=== PATIENT | male | born 2000 | race Caucasian/White ===

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

== ENCOUNTER 2020-04-15 15:00 | Outpatient (RCR) | payer OTHER, SELFPAY ==
[2019-12-09 14:03] VITALS: BMI 31.9
--- NOTE | 2020-03-02 16:27 | HP.PTEVAL_ITS ---
Patient's Visit Information CARLOS PRESTON is a 19 year old M referred to Physical Therapy by Dr. Wilton Parnell DPM with a diagnosis of LBP with Sciatica. Date of Evaluation: 03/02/20 Physical Therapist: Adalid Chase, PT, ATC - Visit Plan Frequency: 1x/Week Duration: 2 Weeks Plan: Issue and instruct on a HEP of REIL and core strenghtening next visit - Subjective Pt reports he has had LBP since September of this year. Pt reports the pain is intermittent in nature. Pt reports this episode started 3 weeks ago. 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 Pt reports no PMHx of LBP prior to September. Pt notes R LE radiculopathy that extends from his LB to his R knee. no sleep difficulty secondary to pain. Pt notes bending forward causes his pain. IBuprophen helps to alleviate his pain. 0/10 pain at rest, 6/10 pain at worst (when he stands for a long time at work) - Pain LBP Pain Intensity (Out of 10): 0 Pain Intensity Range: 6 - Objective Neuro: B LE sensation is WNL to light touch. B patellar reflex= 1/3. MMT: B LE 's 5/5 throughout. L/S ROM: Pt is minimally limited with flex, and severely limited with extension. Both result in increased pain. WNL for B SB. Repeated movements: RFIS increases pain significantly after 10 reps. MCKAY increasees pain but goes away immediately afterwards. REIL 10x3. Special tests: neg piriformis test - Goals Goal 1:: I with HEP Goal Time Frame: 2 Weeks - Rehabilitation Potential Physical Therapy Diagnosis: Pt has LBP, R LE radiculopathy, and limited L/S ROM secondary to a L/S disc derrangement Rehabilitation Potential: Good - Anticipated Interventions Patient/Client Instruction: Educate patient on: Condition, Plan of Care For the Purpose of:: To improve self management Therapeutic Exercise to Include: Strength training, Body mechanics, Postural training, Dynamic Lumbar Stabilization, Cuco Exercises For the Purpose of:: To decrease pain, To increase ROM, To improve muscle performance and motor function Thank you for the opportunity to evaluate your patient. For Medicare and Medicare HMO plans, please review the plan of care and approve it. It will need to be FAXED BACK to us at [phone] for Medicare purposes. For Medicare only, by signing this I certify the plan of care. Please let me know if there are questions or concerns regarding this plan of care. Physician Signature:____ Date:
--- NOTE | 2020-04-15 15:19 | HP.PTDCSUM ---
It has been my pleasure to treat CARLOS PRESTON referred by Dr. Wilton Parnell, DPM, with the diagnosis of LBP with Sciatica for a total of 9 visit(s). Discharge Date: Please see the following information for a summary of their discharge status. Subjective: My pain better some days, then the same on the other days LBP Pain Intensity (Out of 10): 3 % Improvement: 35 Objective/Function: LBP is 2-3/10 currently. Pt has full lumbar ROM with exception to flexion which is minimally limited. Pt is I with HEP Goal 1:: I with HEP Goal Progress: Goal Met Plan: Discharge If there are questions or concerns regarding this patient's physical therapy, please feel free to call me at [phone]. Thank you for the referral of this patient. Sincerely, Adalid Chase, PT, ATC
== END 2020-04-15 19:00 | disposition home or self-care (01) ==
LOC: PT 15:00
PROVIDERS: PCP Pediatrics; Referring Provider Podiatrist Foot & Ankle Surgery; Visit Provider Podiatrist Foot & Ankle Surgery
DX: M67.01 Short Achilles tendon (acquired), right ankle (principal); M54.5 Low back pain
CPT/HCPCS: 97110; 97161; 97164

== ENCOUNTER → 2020-07-08 10:15 | Outpatient (CLI) | payer OTHER, SELFPAY ==
[2019-12-09 14:03] VITALS: BMI 31.9
--- NOTE | 2020-07-08 10:25 | MRI_ITS ---
STUDY: MRI LUMBAR SPINE WITHOUT CONTRAST REASON FOR EXAM: Male, 19 years old. low back pain, right leg pain TECHNIQUE: Standardized fat and water weighted pulse sequences were obtained in the sagittal and axial planes. COMPARISON: X-ray 12/09/2019 FINDINGS: T12-L1: Normal endplates. Normal disc height, hydration and morphology. Normal bilateral facet joints. Normal central canal and bilateral lateral recesses. Normal bilateral intervertebral neural foramina. Normal lumbar lordosis. There is no substantial scoliosis. Normal conus medullaris that terminates at the L1. L1-2: Disc desiccation but no disc protrusion, spinal stenosis, or neural foraminal stenosis. L2-3: Normal endplates. Normal disc height, hydration and morphology. Normal bilateral facet joints. Normal central canal and bilateral lateral recesses. Normal bilateral intervertebral neural foramina. L3-4: Normal endplates. Normal disc height, hydration and morphology. Normal bilateral facet joints. Normal central canal and bilateral lateral recesses. Normal bilateral intervertebral neural foramina. L4-5: Normal endplates. Normal disc height, hydration and morphology. Normal bilateral facet joints. Normal central canal and bilateral lateral recesses. Normal bilateral intervertebral neural foramina. L5-S1: Mild bilateral facet hypertrophy. 2 mm retrolisthesis of L5 on S1 with a moderate sized central disc protrusion produces moderate spinal stenosis with moderate bilateral lateral recess stenosis with abutment of the S1 nerve roots bilaterally and mild bilateral neural foraminal stenosis. Normal visualized sacral ala. Normal visualized paraspinous soft tissue structures. MRI/Spine Lumbar (Routine) IMPRESSION: Focal degenerative disc disease L5/S1 as described above. Electronically Signed: Bubba Montanez MD at 14:18 EDT Tel , Service support ,
== END ==
PROVIDERS: PCP Pediatrics; Referring Provider Orthopaedic Surgery; Visit Provider Orthopaedic Surgery
DX: M51.37 Other intervertebral disc degeneration, lumbosacral region (principal); M48.07 Spinal stenosis, lumbosacral region
CPT/HCPCS: 72148

== ENCOUNTER 2020-10-21 10:01 | Day surgery (SDC) | payer OTHER, SELFPAY ==
[2019-12-09 14:03] VITALS: BMI 31.9
[2020-10-21 10:18] VITALS: BP 144/72; PULSE 77; RESP 17; TEMP 36.9; O2SAT 99; BMI 32.6
--- NOTE | 2020-10-21 11:11 | DCINST_ITS ---
Discharge Diet: No Restrictions Discharge Activity: Return to Normal Activity Return to work on:: 10/21/20 May resume sexual activity in: No Restrictions Weight Bearing Status: Weight bearing as tolerated Call your doctor if your incision/area has: Continuous Slow Oozing, Sudden Increased Bleeding, Increased Pain/ Swelling, Increased Redness, Foul Smelling Discharge, Swelling at the incision site Call your doctor if you observe: Fever of 101 or Higher, Coldness, Increased Pain, Numbness or Tingling, Change in Color, Inability to urinate, Inability to have a bowel movement, Using more than one pad per hour, Shortness of breath, Dizziness, Fainting spells, Swelling in the ankles, Chest pain, Prolonged hiccoughing, Increased palpitations (irregular heartbeat), Calf discomfort, Uncontrolled pain Allergies/Adverse Reactions: Allergies No Known Allergies Allergy (Unverified 11/27/19 15:36) Medications to take at Discharge Albuterol Inhaler 1 puff INHALATION PRN PRN 10/21/20 Primary Care Physician: Linnea Parnell MD [Primary Care Provider] - Test Results: Test results from this visit will be discussed in further detail at your follow- up appointment, if applicable. Please Follow Up With: Derian Castillo DO - as scheduled
--- NOTE | 2020-10-21 11:25 | RAD_ITS ---
STUDY: X-RAY - LUMBAR SPINE REASON FOR EXAM: Male, 19 years old. BILAT L5-S1 TRANSFORAMINAL INJECTION TECHNIQUE: 1 view(s) of the lumbar spine were obtained. COMPARISON: None FINDINGS: Intraoperative imaging provided for bilateral L5-S1 transforaminal injection. RAD/Lumbar Spine 2 or 3 Views IMPRESSION: Intraoperative imaging provided for bilateral L5-S1 transforaminal injection. Electronically Signed: Hudson Nieves MD at 15:01 EST , Service support ,
[2020-10-21] MEDS: Lidocaine 1% (20 ml mdv) 20 ML Vial (11:30)
[2020-10-21] MEDS: Triamcinolone Acetonide 40 MG/ML Vial (11:30)
[2020-10-21] MEDS: Sodium Bicarbonate 50 MEQ/50 ML Vial (11:30)
[2020-10-21] MEDS: Bupivacaine 0.25% 30 ML Vial (11:30)
[2020-10-21 11:46] VITALS: BP 136/79; PULSE 57
[2020-10-21 11:52] VITALS: BP 136/79; PULSE 57; RESP 16; TEMP 37.1; O2SAT 99
--- NOTE | 2020-10-21 15:59 | OP.PCM_ITS ---
Problem List (1) Lumbar herniated disc Status: Acute Report of Operation Date of Procedure: 10/21/20 Pre-Operative Diagnosis: L5-S1 herniated disc Post-Operative Diagnosis: L5-S1 herniated disc Surgery/Procedure Performed:: Bilateral L5-S1 transforaminal epidural steroid injection Description of Surgical Findings:: The patient was seen preop in the holding area. Risk and benefits of the procedure were explained to the patient and informed consent was obtained. The patient was transported to the procedure room, positioned prone on the fluoroscopy table. The back was prepped and draped in the usual sterile fashion. Sterile technique was used throughout. Under fluoroscopic guidance in the AP view, vertebral bodies were identified. The following sequence of events was performed independently prior to needle insertion. Using cephalocaudad tilt, superior endplates were squared and ipsilateral obliquing was performed. The target point is lateral to the lamina and below the pedicle. At no time did the needle cross the line formed medially by the pedicles. Corresponding skin and subcutaneous tissue needle entry sites were anesthetized with a 27-gauge 1- 1/2 inch needle using 1% lidocaine, 5 mL per level. Subsequently, a 22-gauge 5 inch spinal needle with a curved tip was advanced via a subpedicular approach to enter the neuroforamen at bilateral L5-S1 respectively. Position was confirmed in AP, oblique, and lateral views. Subsequently an AP view, contrast was injected, positive epidural spread was noted. No intravascular or intrathecal uptake was noted. After negative aspiration, bupivacaine 0.25% 1 mL +1 mL of Kenalog 40 mg/mL for a total volume of 2 mL was injected in 1 mL aliquots to each level respectively. [place] were removed. No complications were noted. The patient was transported to recovery and monitored until discharge criteria were met. Type of Anesthesia:: Local Estimated Blood Loss (mL): None - Complications None
== END 2020-10-21 12:20 | disposition home or self-care (01) ==
LOC: SDC 10:01 → AC 10:02
PROVIDERS: PCP Pediatrics; Referring Provider Orthopaedic Surgery; Visit Provider Orthopaedic Surgery
PROC: 3E0S3BZ Introduction of Anesthetic Agent into Epidural Space, Percutaneous Approach (ICD-10-PCS; CPT 64483; principal; 2020-10-21 11:25)
DX: M51.16 Intervertebral disc disorders with radiculopathy, lumbar region (principal); M48.061 Spinal stenosis, lumbar region without neurogenic claudication
CPT/HCPCS: 64483; 72100

== ENCOUNTER → 2021-01-10 12:28 | Outpatient (CLI) | payer OTHER, SELFPAY ==
--- NOTE | 2021-01-10 12:30 | EKG12_ITS ---
Test Reason : PREOP Blood Pressure : / mmHG Vent. Rate : 077 BPM Atrial Rate : 077 BPM P-R Int : 134 ms QRS Dur : 096 ms QT Int : 362 ms P-R-T Axes : 052 043 018 degrees QTc Int : 409 ms Normal sinus rhythm Normal ECG Confirmed by MIAH RING, GLENIS ([id number]), newspaper managing editor GLEN VILLANUEVA ([id number]) on 01/11/2021 8:48:13 AM Referred By: Derian Castillo Confirmed By:TAB DOOLEY MD
--- NOTE | 2021-01-10 12:31 | RAD_ITS ---
STUDY: X-RAY CHEST REASON FOR EXAM: Male, 20 years old. PRE OP TECHNIQUE: PA and lateral views of the chest. COMPARISON: None. FINDINGS: The lungs are clear and expanded. There is no demonstrated pleural abnormality. Normal size heart. Normal mediastinum and asya. Normal visualized pulmonary arteries. Normal visualized aortic arch and descending thoracic aorta. Normal visualized thoracic spine. Normal visualized ribs, clavicles, and shoulders. There is no demonstrated abnormality of the visualized soft tissue structures of the upper abdomen. RAD/Chest PA and Lateral IMPRESSION: Normal x-ray examination of the chest. Electronically Signed: Hudson Nieves MD at 15:39 EDT , Service support ,
[2021-01-10 13:38] LABS: Absolute Lymphocyte Count 2.33 X10^3/uL (0.83-4.51); Absolute Neutrophil Count 3.9 X10^3/uL (2.0-7.7); Basophil# 0.05 X10^3/uL; Basophil% 0.7 % (0-1); Eosinophil# 0.18 X10^3/uL; Eosinophils% 2.5 % (0-5); Hematocrit 46.7 % (40-54); Lymphocyte # 2.33 X10^3/ul (0.83-4.51); Lymphocyte % 31.8 % (19-41); Mean Corp Hgb Conc 32.1 g/dL (32-36); Mean Corpuscular Hgb 28.5 pg (27.0-32.0); Mean Corpuscular Volume 88.6 fL (80-94); Monocyte# 0.88 X10^3/uL; NRBC Flagged by Analyzer 0 % (0-5); Neutrophil # 3.86 X10^3/uL (2.7-7.7); Neutrophil % 52.6 % (47-70); Platelet Count 247 K/mm3 (150-450); RBC Distribution Width SD 42.5 fl (35.1-43.9); Red Blood Count 5.27 M/mm3 (4.6-6.2); White Blood Count 7.3 K/mm3 (4.4-11.0)
[2021-01-10 13:46] LABS: International Normalized Ratio 1.1; Partial Thromboplast Time 21.6 Seconds (24.1-36.2); Prothrombin Time (Protime)PT. 13.4 SECONDS (11.7-14.9)
[2021-01-10 14:09] LABS: Anion Gap 2 (5-15); BUN 19 mg/dL (7-18); BUN/Creat Ratio 19.5 RATIO (10-20); Calcium,Total 8.8 mg/dL (8.5-10.1); Chloride 107 mmol/L (98-107); Creatinine, Serum 0.97 mg/dL (0.70-1.30); EST Glomerular Filtration Rate 104 mL/min (>60); Est Glom Filt Rate - Afr Amer 126 mL/min (>60); Glucose 89 mg/dL (74-106); Potassium 4.4 mmol/L (3.5-5.1); Sodium Level 140 mmol/L (136-145)
[2021-01-10 17:19] LABS: Probe Check PASS; Specimen Processing Control PASS
== END ==
PROVIDERS: PCP Pediatrics; Referring Provider Orthopaedic Surgery; Visit Provider Orthopaedic Surgery
DX: Z01.810 Encounter for preprocedural cardiovascular examination (principal); Z01.812 Encounter for preprocedural laboratory examination; Z20.822 Contact with and (suspected) exposure to COVID-19
CPT/HCPCS: 36415; 71046; 80048; 85025; 85610; 85730; 87635; 93005; C9803; U0002

== ENCOUNTER 2021-03-09 16:11 | Emergency (ER) | payer OTHER, SELFPAY ==
[2021-03-09 16:12] VITALS: BP 135/77; PULSE 98; RESP 15; TEMP 36.8; O2SAT 97; BMI 34.4
--- NOTE | 2021-03-09 16:28 | CT_ITS ---
STUDY: CT BRAIN WITHOUT CONTRAST REASON FOR EXAM: Male, 20 years old. Pain, headache RADIATION DOSAGE (If Supplied By Facility): CTDIvol = ( 44.99 ) mGy, DLP = ( 779.24 ) mGycm TECHNIQUE: Transaxial CT imaging of the brain was performed without administration of intravenous contrast material. Individualized dose optimization techniques were used for this CT. COMPARISON: No relevant priors. FINDINGS: Normal soft tissue structures. Normal calvarium. Normal size ventricles and extra-axial spaces for the patient''s age. Normal white matter tracts of the cerebral hemispheres. Normal basal ganglia and thalami. Normal brainstem. Normal cerebellum. There is no intracranial hemorrhage. There are no findings of an acute ischemic infarction. Normal visualized paranasal sinuses. CT/Brain/Head without Contrast IMPRESSION: Normal unenhanced CT scan of the brain. Electronically Signed: Bubba Montanez MD at 17:30 EDT Tel , Service support ,
--- NOTE | 2021-03-09 16:28 | EX.ED.VIS.HA ---
HPI History of Present Illness Chief Complaint: Headache Informant: patient Narrative Narrative: Patient presents with a headache. It started earlier today. He describes sharp pain in his occipital area that does not radiate. He denies any visual changes. He has had nausea and vomiting associated with this. He normally does not get headaches like this. He is try Tylenol and ibuprofen without any relief. No paresthesias or weakness of his arms or legs. No slurred speech. Denies any falls or trauma. PFSH PFS Medical History (Updated 03/09/21 @ 18:[address] Osvaldo Whalen MD) Asthma History of ankle sprain Home Medications Albuterol Inhaler 1 puff INHALATION PRN PRN 10/21/20 [History Last Taken Unknown] ketorolac 10 mg PO TID 5 Days #15 tab 03/09/21 [Rx Last Taken Unknown] Allergy/AdvReac Type Severity Reaction Status Date / Time No Known Allergies Allergy Unverified 11/27/19 15:36 Family History Other Asthma Social History Smoking Status: Never smoker alcohol intake: never substance use type: does not use what type of physical activity do you participate in: none ROS ROS ED Constitutional Constitutional ED: Denies chills or fever(s) Eyes Eyes: Denies blurry vision, change in vision or diplopia ENT ENT ED: Denies ear pain, rhinorrhea or sore throat Cardiovascular Cardiovascular: Denies chest pain or palpitations Respiratory/Chest Respiratory/Chest: Denies cough, dyspnea or sputum Gastrointestinal Gastrointestinal: Reports nausea and vomiting Genitourinary Genitourinary ED: Denies dysuria, hematuria or urinary frequency Musculoskeletal Musculoskeletal: Denies back pain or neck pain Integumentary Denies change in pigmentation or rash Neurologic Neurologic: Reports headache(s) Psychiatric Psychiatric: Denies anxiety or depression Endocrine Endocrinology: Denies polydipsia or polyuria EXAM Physical Exam Const Vital Signs: 03/09/21 16:12 Temperature 98.2 F Temperature Source Temporal Pulse Rate 98 Respiratory Rate 15 Blood Pressure 135/77 H Blood Pressure Mean 96 Pulse Ox 97 Oxygen Delivery Method Room Air Positive well nourished and well developed General Appearance ED: well developed and NAD HEENT Reports moist mucous membranes normocephalic and atraumatic; Negative for tenderness Eyes PERRL and EOMs intact bilaterally Neck supple and no JVD Chest Wall Chest: Negative for tenderness Resp normal respiratory effort and clear to auscultation bilaterally Effort and Inspection: Negative for respiratory distress Cardio regular rate, regular rhythm and no murmurs Rate: regular rate Rhythm: regular rhythm GI soft to palpation, non-tender and non-distended Palpation: soft Back/Spine no CVA tenderness and no thoracic nor lumbar tenderness Cervical Spine: Negative for cervical spine tenderness Extremity normal to inspection and full ROM General Extremety ED: Negative for tenderness Neuro oriented x3, CN's II-XII intact bilaterally and no sensory deficits noted Sensorium / Orientation: awake and alert Motor Exam: strength 5/5 throughout Psych mental status grossly normal Skin no rashes or lesions noted MDM MDM MDM Narrative Medical decision making narrative: I did perform a CAT scan because this is the first headache this patient has had of this severity. Is normal. He was given Reglan, Benadryl, Toradol and Decadron with improvement of his headache. I will send him home with Toradol to help with his headaches. He will follow-up with his PCP. Radiography Diagnostic Testing: Radiology Impression Brain CT 03/09/21 16:28 IMPRESSION: Normal unenhanced CT scan of the brain. Electronically Signed: Bubba Montanez MD at 17:30 EDT Tel , Service support , Discharge Plan Triage Chief Complaint: Headache ED Provider: Osvaldo Whalen Dx/Rx/DC Orders Clinical Impression: Headache Instructions: ED Headache Unspecified Prescriptions: New ketorolac 10 mg tablet 10 mg PO TID 5 Days Qty: 15 RF: 0 No Action Albuterol Inhaler 1 puff INHALATION PRN PRN (Reason: Shortness Of Breath) RF: 0 Primary Care Provider: Linnea Parnell Referrals: Linnea Parnell MD [Primary Care Provider] - Disposition Disposition: Home, self care
[2021-03-09] MEDS: DiphenhydrAMINE 50 MG/ML Syringe 25 MG IV (16:48)
[2021-03-09] MEDS: 0.9% Normal Saline 1,000 ML 999 ML IV (16:48)
[2021-03-09] MEDS: proCHLORPERazine 10 MG/2 ML Vial IV (16:48)
[2021-03-09] MEDS: Ketorolac 15 MG/ML Vial IV (17:53)
[2021-03-09] MEDS: dexAMETHasone 10 MG/ML Vial 4 MG IV (18:55)
[2021-03-09 19:00] VITALS: BP 143/71; PULSE 82; RESP 16; O2SAT 100
== END 2021-03-09 19:17 | disposition home or self-care (01) ==
PROVIDERS: Emergency Provider Emergency Medicine; PCP Pediatrics
DX: R51.9 Headache, unspecified (principal); R11.2 Nausea with vomiting, unspecified
CPT/HCPCS: 70450; 96361; 96374; 96375; 99283; J7030; A4216

== ENCOUNTER → 2021-06-10 | Outpatient (CLI) | payer OTHER, SELFPAY ==
[2021-06-10 12:57] LABS: RBC /Synovial Fluid 0.036 10^6/uL (0); Synovial Fld Mononuclear WBC % 8.5 %; Synovial Fld Polynuclear WBC # 25.319 10^3/uL; Synovial Fld Polynuclear WBC % 91.5 %
[2021-06-10 13:09] LABS: AUTO B FLUID DILUENT BKGD CT WBC <0.1 RBC <0.01 (W<.1,R<.01); Appearance /Synovial Fluid Cloudy (CLEAR); Color / Synovial Fluid Pink (Pale Yellow)
[2021-06-10 13:25] LABS: Lymph 4 %; Monocyte /Synovial Fluid 3 %; Neutrophil 93 % (0-25)
[2021-06-10 13:28] LABS: Body Fluid QC Type(s) BF1Q
[2021-06-13 12:33] LABS: Pathologist Comment Reviewed
== END | disposition home or self-care (01) ==
LOC: LABSPEC 15:19
PROVIDERS: PCP Pediatrics; Visit Provider Orthopaedic Surgery
DX: L76.34 Postprocedural seroma of skin and subcutaneous tissue following other procedure (principal)
CPT/HCPCS: 87015; 87070; 87075; 87077; 87101; 87116; 87205; 87206; 89050; 89051

== ENCOUNTER 2021-06-16 18:56 | Observation (INO) | payer OTHER, SELFPAY ==
[2021-06-16] VITALS (9 sets, daily range): BP systolic 111–147; BP diastolic 58–99; PULSE 69–91; RESP 16; TEMP 36.3–37; O2SAT 96–99; BMI 36.8
[2021-06-16] MEDS: Lactated Ringers 1,000 ML 100 ML IV ×2 (13:51→18:15)
--- NOTE | 2021-06-16 14:45 | TISS_PTH ---
PATIENT: CARLOS PRESTON LOC: [facility]3 U#:[id number] AGE/SX: 20/M ROOM: GA316 RE06/16/[address]: Dr. Derian Castillo DO : 2000 BED: 1 DIS: 06/17/2021 SPEC #: [id number] RECD: 06/16/21 19:04 STATUS: CK PACHECONara #: [id number] SUHA: 06/16/21 14:[address]: Derian Castillo DEPT: SURGICAL PATHOLOGY RECD BY: Zeinab Orona ENTERED: 06/17/21 07:34 SP TYPE: Tissue Bx AMANDA DR: Dr. Linnea Parnell MD Tissues: A - TISSUE SURGICALLY REMOVED B - TISSUE SURGICALLY REMOVED Procedures: Surgery Specimen Level III HEADER OPERATION: Exploration of lumbar wound, placement of wound vac PRE-OP DIAGNOSIS: Seroma TISSUE SUBMITTED: A ? Lumbar wound tissue, B ? Lumbar tissue fresh in normal saline MICROSCOPIC DIAGNOSIS A. Lumbar wound tissue: Fragments of fibrinopurulent material. B. Lumbar tissue: Fragments of fibrinopurulent material. KE:weston 06/20/2021 COMMENT Correlation with clinical, culture studies and appropriate follow up are necessary. MICROSCOPIC DESCRIPTION Slides are reviewed. GROSS DESCRIPTION A - Received in fixative is one container labeled with the patient's name and designated lumbar wound tissue. The specimen consists of multiple irregular fragments of wood soft tissue that in aggregate measure 2 x 2.5 x 0.3 cm. The specimen is totally submitted in one cassette. B - Received in fixative is one container labeled with the patient's name and designated lumbar tissue fresh in normal saline. The specimen consists of multiple irregular fragments of wood soft tissue that in aggregate measure 2 x 1.5 x 0.3 cm. The specimen is totally submitted in one cassette. / KE:weston 06/17/21 TC:2 CPT: 63964 x2
[2021-06-16] MEDS: Cefazolin 2 GM in 0.9% Normal Saline 100 ML IV (17:35)
--- NOTE | 2021-06-16 19:04 | OP.PCM_ITS ---
Problems Associated Problem List Diagnoses (1) Seroma: (2) Lumbar herniated disc: Report of Operation Date of Procedure: 06/16/21 Pre-Operative Diagnosis: Post op lumbar seroma Post-Operative Diagnosis: post op lumbar seroma Surgery/Procedure Performed:: 1. Lumbar I&D 2. Wound exploration 3. Application of wound VAC Surgeon: Derian Castillo Type of Anesthesia: General Specimen's removed: cultures tissue Drains: wound VAC Estimated Blood Loss (mL): 10cc Fluids Replaced: 1000cc Description of Procedure: The patient is a 20-year-old male who underwent a right L5-S1 laminotomy discectomy on 01/14/2021. However, he was recently seen in clinic with swelling around his site of previous lumbar surgery. Imaging studies were performed which showed a fluid collection in the lumbar region. A large blister was developing at the superior aspect of his prior lumbar scar. The fluid collection was aspirated in the office. However the condition of the prior incision continued to deteriorate. After discussing the risk, benefits, and alternatives and answering all of his questions, I recommended a lumbar irrigation and debridement with wound exploration and application of wound VAC. He agreed to proceed. The patient is a 20-year-old male with significant swelling and formation of a large blister at the site of his prior lumbar surgery scar. Imaging studies confirmed above diagnoses. He had failed to respond to conservative treatment, and opted for operative intervention, understanding the risks to include, but not limited to infection, bleeding, damage to the nerves, arteries, and veins, possibility of spinal fluid leak, paralysis, nerve palsy, continued pain, need for further surgery, deep vein thrombosis, pulmonary embolism, risk of stroke, heart attack, or . Before being wheeled in the operative suite the patient's identity and surgery site were confirmed by the patient, staff, anesthesia, and the surgeon. He was wheeled in the operative suite and given the appropriate amount of sedation by anesthesia, general endotracheal anesthesia. He did receive preoperative IV antibiotics, Ancef. He was transferred prone to the operative table. All bony prominences were well-padded. The lumbar region was prepped and draped in a sterile manner. Inspection of his prior lumbar incision revealed a 2.5 inch midline lumbar scar with a 2.5 cm diameter bulging blister at the superior aspect of the scar. The prior scar was reopened with a 10 blade scalpel. A small amount of brownish-yellowish thick fluid was encountered. This was cultured. There was also a significant amount of wood friable slimy tissue, possibly necrotic fat tissue. This tissue was sent to pathology and for cultures. All fluid necrotic tissue were thoroughly debrided and the wound was thoroughly irrigated. The deep fascial layer was inspected and found to have a small defect. The fascia was reopened and explored. No fluid or necrotic tissue was encountered deep to the fascia. A Valsalva maneuver was performed which showed no CSF leakage. The wound was again thoroughly irrigated with a pulse avionics electrical engineer and 3000 cc of normal saline solution. The fascia was closed with #1 Vicryl. Then a wound VAC was applied to the skin and subcutaneous tissues. The patient tolerated the procedure well. Sponge instrument needle counts were correct at the end of the case. He was extubated and transferred to the PACU in stable condition. Complications none Admit VTE Documentation VTE Present on Admission: No
--- NOTE | 2021-06-16 19:05 | PN.ORTHO_ITS ---
Subjective Subjective The patient was seen and examined postoperatively in the PACU. He is doing well and resting comfortably. He does have some soreness around the surgery site. He denies any other complaints including acute numbness tingling or weakness. Objective Data Objective Data Vital Signs: Vital Signs Temp Pulse Resp BP Pulse Ox 97.3 F L 72 16 147/76 H 98 06/16/21 18:49 06/16/21 18:49 06/16/21 18:49 06/16/21 18:49 06/16/21 18:49 Oxygen Delivery Method Room Air Weight: 242 lb 4.608 oz Body Mass Index (BMI) 36.8 Intake & Output: Intake and Output for Last 24 Hours 06/14/21 06/15/21 06/16/21 23:59 23:59 23:59 Intake Total 110 / 110 Balance 110 / 110 Lab / Micro Data Micro: Microbiology 06/16/21 13:32 Nasal Secretion SARS-CoV-2 Antigen (Rapid) - Final Physical Exam Const alert, oriented x3 and no apparent distress General Appearance: cooperative and comfortable HEENT head/scalp atraumatic Eyes EOMs intact bilaterally and conjunctivae normal Neck full ROM Resp normal respiratory effort and normal air movement Cardio regular rate and regular rhythm Peripheral Pulses: pulses 2+ throughout GI soft to palpation, non-tender and non-distended Back/Spine Back/Spine Narrative: Wound VAC in place and functioning Cervical Spine: cervical ROM normal Thoracic Spine / Upper Back: normal to inspection Lumbar Spine / Lower Back: normal to inspection Extremity normal to inspection and no clubbing, cyanosis or edema Peripheral Pulses: Yes pulses 2+ throughout Skin General Skin Exam: no breakdown Neuro oriented x3, CN's II-XII intact bilaterally, moves all extremities, no focal motor deficits, no sensory deficits noted and deep tendon reflexes 2+ bilate rally Motor Exam: strength 5/5 throughout and muscle tone normal throughout Assessment & Plan Assessment/Plan (1) Seroma: PLAN: Okay to admit for observation See orders Plan for discharge home tomorrow with wound care for management of wound VAC
--- NOTE | 2021-06-16 19:05 | DS.PCM_ITS ---
Providers Date of Admission: 06/16/21 Primary Care Physician: Dr. Linnea Parnell MD Diagnosis Discharge Diagnosis (1) Seroma: Status: Acute (2) Lumbar herniated disc: Status: Acute Code(s): M51.26 - Other intervertebral disc displacement, lumbar region Medications at Discharge Home Medications Albuterol Inhaler 1 puff INHALATION PRN PRN 10/21/20 acetaminophen 1,000 mg PO Q6H PRN 06/16/21 hydrocodone-acetaminophen 1 tab PO Q6H PRN PRN 06/16/21 ibuprofen 400 mg PO Q6H PRN 06/16/21 Hospital Course Operations - (Irrigation and debridement of lumbar region, wound exploration, application of wound VAC) Summary of Care Provided Hospital Course: The patient is a 20-year-old male who underwent lumbar irrigation and debridement with wound exploration and application of wound VAC on 06/16/2021. He was subsequently admitted for observation. He did well during his stay. His pain was controlled and he was mobilizing independently. No significant medical issues were reported. He was subsequently discharged home on 06/16/2021 with wound care for management of wound VAC. He will follow up with Dr. Castillo in 3 weeks. Physical Exam Const alert, oriented x3 and no apparent distress General Appearance: cooperative and comfortable HEENT head/scalp atraumatic Eyes EOMs intact bilaterally and conjunctivae normal Neck full ROM Resp normal respiratory effort and normal air movement Cardio regular rate and regular rhythm Peripheral Pulses: pulses 2+ throughout GI soft to palpation, non-tender and non-distended Back/Spine Back/Spine Narrative: Wound VAC in place and functioning Thoracic Spine / Upper Back: normal to inspection Lumbar Spine / Lower Back: normal to inspection Extremity normal to inspection, full ROM, normal capillary refill, no joint enlargement, no clubbing, cyanosis or edema and no calf tenderness Peripheral Pulses: Yes pulses 2+ throughout Skin General Skin Exam: no breakdown Neuro oriented x3, CN's II-XII intact bilaterally, moves all extremities, no focal motor deficits, no sensory deficits noted and deep tendon reflexes 2+ bilaterally Motor Exam: strength 5/5 throughout and muscle tone normal throughout Weight / BMI Weight Weight: 242 lb 4.608 oz Body Mass Index (BMI) 36.8 ABG / Lab / Microbiology Data Microbiology: Microbiology 06/16/21 13:32 Nasal Secretion SARS-CoV-2 Antigen (Rapid) - Final D/C Instructions Discharge Diet: No restrictions Weight Bearing Status: Weight bearing as tolerated Call your doctor if your incision/area has: Continuous Slow Oozing, Sudden Increased Bleeding, Increased Pain/ Swelling, Increased Redness, Foul Smelling Discharge and Swelling at the incision site Call your doctor if you observe: Fever of 101 or Higher, Coldness, Increased Pain, Numbness or Tingling, Change in Color, Inability to urinate, Inability to have a bowel movement, Using more than 1 pad per hour, Shortness of breath, D izziness, Fainting spells, Swelling in the ankles, Chest pain, Prolonged hiccupping, Increased palpitations (irregular heartbeat), Calf discomfort and Uncontrolled pain Please Follow Up With: Derian Castillo DO When: 3 weeks Meaningful Use Info Meaningful Use Diagnoses (Choose all that apply): None applicable Discharge Plan Admission Admit Date/Time: 06/16/21 18:56 Attending Provider: Derian Castillo Primary Care Provider: Linnea Parnell Instructions Additional Instructions / Restrictions: 1. During your procedure, you received sedation through your IV. Please follow these instructions for the next 24 hours: Do not drive a motor vehicle, do not drink any alcoholic beverages, and do not sign any legal documents or make personal or business decisions. A responsible adult should stay with you at least 6 hours after the procedure. 2. Keep your surgical site/incision clean and the VAC dry and intact. You may sponge bathe, but no showering or sitting in a bathtub. You may use an ice pack at the surgical site to reduce any swelling or discomfort. 3. Monitor the incision site for any signs or symptoms of infection. Watch for redness, excessive swelling or drainage, or continued pain at the incision site after 3 days. Contact your physician immediately for a fever, chills or a temperature of 101.5? F or greater. 4. Take your medication exactly as prescribed by your physician. Do not attempt to wean yourself off any of your medications even though your pain is improving. This process needs to be carefully monitored by your doctor. Take any antibiotics prescribed exactly as directed and until they are gone. 5. Avoid stretching, bending, pulling, twisting or any sudden movements. Do not bend or twist at the waist. 6. No lifting greater than 5 pounds. 7. Do not operate a motor vehicle, equipment or a power tool while taking narcotic pain medication 9. Please contact our office if you are even scheduled for a CT scan or an MRI. 10. Please call us if you have any questions, problems or concerns. Discharge Orders/Prescriptions Prescriptions: Continued Albuterol Inhaler 1 puff INHALATION PRN PRN (Reason: Shortness Of Breath) RF: 0 acetaminophen 500 mg Tablet 1,000 mg PO Q6H PRN (Reason: Pain) RF: 0 No Action hydrocodone-acetaminophen 5-325 mg tablet 1 tab PO Q6H PRN PRN (Reason: Severe Pain (Scale Score 7-10)) RF: 0 ibuprofen 200 mg Tablet 400 mg PO Q6H PRN (Reason: Pain) RF: 0 Referrals / Follow Up: Linnea Parnell MD [Primary Care Provider] -
[2021-06-16] MEDS: Gabapentin 300 MG Capsule PO (19:53)
[2021-06-16] MEDS: Acetaminophen 500 MG Tablet 1000 MG PO (21:01)
[2021-06-17] VITALS (9 sets, daily range): BP systolic 100–119; BP diastolic 44–55; PULSE 72–86; RESP 16–18; TEMP 36.6–36.8; O2SAT 97–98
[2021-06-17] MEDS: Lactated Ringers 1,000 ML 100 ML IV (01:08)
--- NOTE | 2021-06-17 02:22 | PCS.PANDOC ---
PANDEMIC DOCUMENTATION INITIATED: Date: 05/09/2021 Time: 190
[2021-06-17] MEDS: Acetaminophen 500 MG Tablet 1000 MG PO ×2 (05:33→14:03)
[2021-06-17] MEDS: oxyCODONE 5 MG Tablet PO (10:24)
--- NOTE | 2021-06-17 11:00 | WOUNDNOTE ---
Vac Via canister alarming full. canister is full of sanguineous drainage. patient is scheduled to be discharged home today with home VAC. this nurse had to remove the VAC dressing in order to place the home VAC since the Via canister was full. this nurse carefully removed the VAC foam. There was copious amounts of bloody drainage noted. pressure held to surgical site and the bleeding continued to pour around the pressure dressing. Dr Castillo was paged and charge nurse and patient's nurse was called to the room. opening packed tightly with gauze and pressure held. still moderate bleeding noted. talked with Dr Castillo who wants the wound VAC to be reapplied. this nurse does not feel comfortable applying the wound VAC d/t the amount of bleeding.
[2021-06-17] MEDS: Morphine 4 MG/ML Syringe IV ×2 (11:26→12:42)
--- NOTE | 2021-06-17 11:27 | PHA.DC.MR ---
Pharmacy Service has performed discharge medication reconciliation for this patient. No new medications at time of discharge review. Medications reviewed are from previously reported home medications. Home Medications Albuterol Inhaler 1 puff INHALATION PRN PRN 10/21/20 acetaminophen 1,000 mg PO Q6H PRN 06/16/21 hydrocodone-acetaminophen 1 tab PO Q6H PRN PRN 06/16/21 ibuprofen 400 mg PO Q6H PRN 06/16/21 The patient's discharge medication list was reviewed for discrepancies and discrepancies were resolved.
--- NOTE | 2021-06-17 11:30 | WOUNDNOTE ---
Mother present at bedside as well and does not want the wound VAC applied. Dr Castillo returned call and states will be in to see patient and reapply the wound VAC since this nurse did not feel comfortable reapplying it d/t the amount of bleeding.
--- NOTE | 2021-06-17 11:30 | NURSING ---
Called to the room Shelbi Lemons holding pressure to surgical incision on pts back. This nurse assisted with pressure to the incision. Pt continues to bleed from surgical site. Magy Gleasoncharge account authorizer to room to assist. Pts mom stepped out of the room. Pt talking and comfortable at this time. Pt states he feels cold. Warm blankets given. Surgical incision stopped bleeding and Shelbi Lemons on phone with Dr. Castillo. Pt resting in bed denies further needs.
--- NOTE | 2021-06-17 11:59 | PN.ORTHO_ITS ---
Subjective Subjective I was called to the floor to evaluate the patient. The wound care nurse change the wound VAC and was concerned about bleeding from the lumbar region. The patient was seen and examined. He is resting comfortably. A pressure dressing has been applied to his lumbar region. He is having some mild soreness at his s urgery site but denies any other complaints at this time. Objective Data Objective Data Vital Signs: Vital Signs Temp Pulse Resp BP Pulse Ox 98.0 F 85 18 119/47 L 98 06/17/21 11:27 06/17/21 11:27 06/17/21 11:27 06/17/21 11:27 06/17/21 11:27 Oxygen Delivery Method Room Air Weight: 242 lb Body Mass Index (BMI) 36.8 Intake & Output: Intake and Output for Last 24 Hours 06/15/21 06/16/21 06/17/21 23:59 23:59 23:59 Intake Total 1110 / 1960 2516.67 / 2516.67 Output Total 400 / 400 Balance 1110 / 1560 2116.67 / 2116.67 Lab / Micro Data Micro: Microbiology 06/16/21 Unknown Wound - Back Wound Culture - Preliminary No growth-Final to follow 06/16/21 Unknown Wound - Back Wound Culture - Preliminary No growth-Final to follow 06/16/21 Unknown Wound - Back Wound Culture - Preliminary No growth-Final to follow 06/16/21 13:32 Nasal Secretion SARS-CoV-2 Antigen (Rapid) - Final Physical Exam Narrative The patient is alert and oriented, in no acute distress and resting comfortably. There is dressing on the lumbar region is clean dry and intact. Assessment & Plan Assessment/Plan (1) Seroma: PLAN: The patient was placed in a prone position on his bed. His lumbar region was draped in a sterile fashion. The pressure dressing was removed from the lumbar incision. No significant bleeding was encountered at this time. There is minimal erythema about the incision. Mild to moderate tenderness about the incision. No other drainage noted. A sterile wound VAC was then applied to the lumbar incision. The patient tolerated the procedure well. No complications. We will order an H&H The wound VAC is in place and functioning. We will continue to monitor output. We will start the patient on Keflex 500 mg 3 times daily for antibiotic prophylaxis. Plan for discharge either later today, or keep overnight for observation and plan to discharge tomorrow. He will follow up with wound care for VAC management as scheduled Follow up with Dr. Castillo in clinic as scheduled
--- NOTE | 2021-06-17 12:00 | WOUNDNOTE ---
Dr Castilol in to assess the back wound and reapplied the wound VAC. there was still a piece of foam in the base of the wound. this foam was left in place and more foam applied to fill the wound bed. Pt's mother aware there are two pieces of foam in the wound. Good seal noted at 125mmHg low continuous suction. no bleeding noted while patient was laying still. there was a small amount of blood in tubing when patient positioned himself in bed. will monitor drainage. pt tolerated the VAC application well.
[2021-06-17 12:37] LABS: Hemoglobin 13.3 g/dL (13.0-16.5)
[2021-06-17] MEDS: 0.9% Saline Lock 10 ML Syringe IV (12:42)
--- NOTE | 2021-06-17 12:52 | CASEMGMT ---
Social Work Note SW updated that pt had good amount of bleeding today during wound vac changes. SW in to provide support to pt. SW introduced self and role at [facility]. Pt states he is doing well, denied additional needs or concerns at this time. Jennifer Clements [employer], [employer]
--- NOTE | 2021-06-17 15:33 | WOUNDNOTE ---
In to check the VAC tubing and canister. small amount of bloody drainage noted. talked with patient's mother. plan is for discharge later today.
== END 2021-06-17 16:15 | disposition home or self-care (01) ==
LOC: SDC 19:07 → MS3 19:07
PROVIDERS: Admitting Provider Orthopaedic Surgery; PCP Pediatrics; Referring Provider Orthopaedic Surgery; Visit Provider Orthopaedic Surgery
PROC: (CPT 63030; principal; 2021-06-16 14:30)
DX: L76.34 Postprocedural seroma of skin and subcutaneous tissue following other procedure (principal); Y83.8 Other surgical procedures as the cause of abnormal reaction of the patient, or of later complication, without mention of misadventure at the time of the procedure; M51.26 Other intervertebral disc displacement, lumbar region; M99.03 Segmental and somatic dysfunction of lumbar region; M99.05 Segmental and somatic dysfunction of pelvic region; M99.04 Segmental and somatic dysfunction of sacral region; M99.02 Segmental and somatic dysfunction of thoracic region; J45.909 Unspecified asthma, uncomplicated; Z79.899 Other long term (current) drug therapy; Z23 Encounter for immunization
CPT/HCPCS: 00630; 22015; 36415; 85014; 85018; 87015; 87070; 87075; 87102; 87116; 87176; 87205; 87206; 87426; 88304; 88305; 96361; 96374; 96376; 99218; J7120; 90686; A4216; G0378; J2405

== ENCOUNTER 2021-07-06 15:06 | Outpatient (RCR) | payer OTHER, SELFPAY | END 2021-07-24 23:59 | LOC: NS 15:06 | PROVIDERS: PCP Pediatrics; Visit Provider Pediatrics | DX: Z71.3 Dietary counseling and surveillance (principal); E66.9 Obesity, unspecified | CPT/HCPCS: 97802 ==

== ENCOUNTER 2021-08-22 15:00 | Outpatient (RCR) | payer OTHER, SELFPAY | END 2021-08-23 23:59 | LOC: NS 15:00 | PROVIDERS: PCP Pediatrics; Visit Provider Pediatrics | DX: Z71.3 Dietary counseling and surveillance (principal); E66.9 Obesity, unspecified | CPT/HCPCS: 97803 ==

== ENCOUNTER 2021-09-07 10:10 | Outpatient (RCR) | payer OTHER, SELFPAY | END 2021-09-23 23:59 | LOC: NS 10:10 | PROVIDERS: PCP Pediatrics; Visit Provider Pediatrics | DX: Z71.3 Dietary counseling and surveillance (principal); E66.9 Obesity, unspecified | CPT/HCPCS: 97803 ==

== ENCOUNTER 2021-09-27 16:27 | Outpatient (RCR) | payer OTHER, SELFPAY | END 2021-10-24 23:59 | LOC: NS 16:27 | PROVIDERS: PCP Pediatrics; Visit Provider Pediatrics | DX: E66.01 Morbid (severe) obesity due to excess calories (principal); Z68.43 Body mass index [BMI] 50.0-59.9, adult; Z71.3 Dietary counseling and surveillance | CPT/HCPCS: 97803 ==

== ENCOUNTER → 2022-01-26 | Outpatient (CLI) | payer OTHER, SELFPAY ==
[2022-01-26 17:11] LABS: Thyroid Stim Hormone (TSH) 2.86 uIU/mL (0.358-3.74)
== END | disposition home or self-care (01) ==
LOC: LAB 16:07
PROVIDERS: PCP Family Medicine; Referring Provider Family Medicine; Visit Provider Family Medicine
DX: R53.83 Other fatigue (principal)
CPT/HCPCS: 36415; 84439; 84443

== ENCOUNTER → 2023-03-26 | Outpatient (CLI) | payer OTHER, SELFPAY ==
[2023-03-26 15:54] LABS: Erythrocyte Sedimentation Rate 3 mm/hr (0-20)
[2023-03-26 16:28] LABS: CRP 3.27 mg/L (0.0-3.0); Rheumatoid Factor < 10.0 IU/mL (<15)
[2023-03-29 12:09] LABS: Anti-Nuclear Antibody Test Negative (.); CCP IgG Antibodies 6 units (0-19)
== END | disposition home or self-care (01) ==
LOC: BFHLAB 11:52
PROVIDERS: PCP Family Medicine; Referring Provider Family Medicine; Visit Provider Family Medicine
DX: R53.83 Other fatigue (principal); R60.0 Localized edema; M54.9 Dorsalgia, unspecified; M79.671 Pain in right foot; M79.672 Pain in left foot
CPT/HCPCS: 36415; 85652; 86038; 86140; 86200; 86431